=== PATIENT | female | born 1980 | race African-American/Black ===

== ENCOUNTER 2016-10-01 14:11 | Emergency (ER) | payer OTHER ==
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
== END 2016-10-01 17:45 | disposition home or self-care (01) ==
LOC: CFTX 14:11 → CED 14:11 → CFTX 16:26
DX: S16.1XXA Strain of muscle, fascia and tendon at neck level, initial encounter (principal); F17.210 Nicotine dependence, cigarettes, uncomplicated; V49.40XA Driver injured in collision with unspecified motor vehicles in traffic accident, initial encounter; Y92.488 Other paved roadways as the place of occurrence of the external cause
CPT/HCPCS: 72040; 99283